=== PATIENT | male | born 1955 | race Caucasian/White ===

== ENCOUNTER 2018-06-04 07:12 | Observation (INO) ==
--- NOTE | 2018-06-04 07:34 | Emergency Department Note ---
Disposition Clinical Impression: Ureterolithiasis, Intractable pain, Kidney stone on right side Disposition: Admitted As Inpatient Condition: Fair Referrals: NONE,PCP [Non-Partnered Physician] - Forms: ED Satisfaction Letter, Work/School Release Time of Disposition: 10:14 Abdominal Pain HPI - General Chief Complaint: ED Abdominal Pain Stated Complaint: rt flank pain hx of kidney stones Time Seen by Provider: 06/04/18 07:15 Source: patient, family Mode of arrival: ambulatory Limitations: no limitations Nursing Notes Reviewed: Yes Vital Signs Reviewed: Yes - History of Present Illness HPI Narrative: Alert and oriented nontoxic-appearing 62-year-old male presents with complaint of right flank pain. Patient reports pain woke him from sleep at 1 AM medicines been persistent. He reports pain radiates into right sided suprapubic area and right lower quadrant abdomen. He states history of kidney stones with similar symptoms although pain is worse with this episode. He reports one episode of nausea that is since resolved. Patient denies frequency, urgency, dysuria, or hematuria, or vomiting. Pt Subjective Complaint: flank pain Onset (ago): hour(s) Consistency: constant Location: R flank Pain Severity: moderate Pain Scale: 7 Quality: aching, sharp Radiation: RLQ, suprapubic Improves with: nothing Worsens with: movement Context: history of similar episodes Associated symptoms: Reports: nausea. Denies: vomiting, fever, chills, dysuria, hematuria Treatments prior to arrival: NSAIDs - Related Data Home Medications Medication Instructions Recorded Confirmed Aspirin [Adult Low Dose Aspirin EC] 81 mg PO DAILY 11/01/15 11/01/15 Lisinopril [Zestril] 40 mg PO DAILY 11/01/15 11/01/15 hydroCHLOROthiazide 25 mg PO DAILY 11/01/15 11/01/15 [Hydrochlorothiazide] Previous Rx's Medication Instructions Recorded Clindamycin [Cleocin] 150 mg PO Q6HR #8 capsule 10/31/15 OxyCODONE Immed Rel [Roxicodone 5 5 mg PO Q8HR PRN #20 tablet 10/31/15 MG] Allergies Allergy/AdvReac Type Severity Reaction Status Date / Time etodolac [From Lodine] AdvReac Mild increased Verified 06/04/18 07:20 heart rate All systems ED: reviewed and negative except as stated. Review of Systems: As Per HPI Constitutional: Denies: fever, chills, weakness, weight change, night sweats Eyes: Denies: eye pain, eye discharge, vision change ENT ED: Denies: ear pain, throat pain, dental pain, hearing loss, epistaxis, congestion, dysphagia Cardiovascular: Denies: chest pain, palpitations, dyspnea on exertion, edema, syncope Respiratory: Denies: cough, dyspnea, wheezes, hemoptysis, stridor Gastrointestinal: Reports: as per HPI, abdominal pain (Right flank pain into right lower quadrant), nausea (One episode that is since resolved). Denies: vomiting, diarrhea, constipation, hematemesis, melena, hematochezia Genitourinary: Denies: urgency, dysuria, frequency, hematuria, discharge Musculoskeletal: Denies: back pain, neck pain, arthralgia, myalgia Integumentary: Denies: rash, abrasion, lesions Neurological: Denies: headache, weakness, numbness, paresthesias, confusion, abnormal gait, vertigo Psychiatric: Denies: anxiety, depression, suicidal thoughts, homicidal thoughts, auditory hallucinations, visual hallucinations Endocrine: Denies: fatigue Hematological/Lymphatic: Denies: easy bleeding, easy bruising Allergic/Immunologic: Denies: facial swelling, urticaria Abdominal Pain PMH - Past Medical History Medical history: Reports: hypertension, other Psychiatric history: Reports: no psych history - Social History Smoking status: Never smoker Alcohol use: Reports: none Drug use: Reports: none Physical Exam - General Limitations: no limitations General appearance: alert, in no apparent distress - Head Head exam: atraumatic, normocephalic, normal inspection - Eye Eye exam: Present: normal appearance, PERRL, EOMI. Absent: nystagmus - ENT ENT exam: mucous membranes moist - Neck Neck exam: Present: normal inspection, full ROM, trachea midline - Chest Chest inspection: Present: normal inspection, symmetric chest wall rise - Abdominal Exam Abdominal exam: Present: soft, Non-Tender, normal bowel sounds. Absent: tenderness, distention, guarding, rebound, rigidity - Extremities Exam Extremities exam: Present: normal inspection, full ROM - Back Exam Back exam: Present: tenderness, CVA tenderness (R). Absent: CVA tenderness (L) - Neurological Exam Neurological exam: Present: alert, oriented X3 - Psychiatric Psychiatric exam: Present: normal affect, normal mood - Skin Skin exam: Present: warm, dry, intact, normal color. Absent: rash Course Vital Signs Temperature 97.7 F 06/04/18 07:18 Pulse Rate 56 06/04/18 07:18 Respiratory Rate 18 06/04/18 07:18 Blood Pressure 179/102 06/04/18 07:18 O2 Sat by Pulse Oximetry 98 06/04/18 07:18 Temperature 97.7 F 06/04/18 07:41 Pulse Rate 71 06/04/18 09:53 Respiratory Rate 18 06/04/18 09:53 Blood Pressure 156/94 06/04/18 09:53 O2 Sat by Pulse Oximetry 99 06/04/18 09:53 Oxygen Delivery Oxygen Delivery Room Air Abdominal Pain - MDM Narrative Medical decision making narrative: Normal white blood cell count. Urinalysis shows trace blood. Minor bump in creatinine however not significantly elevated from previous values when trended. CT does show multiple incidental findings including cholelithiasis versus gallbladder sludge. The patient has no tenderness with the right upper quadrant. Negative Belle sign. I discussed this patient's case, laboratory workup, and radiology results with Dr. Buchanan, ED attending. He agrees with admission to urologist for intractable pain and potential stone retrieval. I have spoken with Dr. Ramachandran, urologist vision specialist. He states that he believes that the radiology read may be inaccurate and that the stone may still be at the ureterovesicular junction, waiting to drop into the urinary bladder. The patient for admission to his service. - Medical Records Medical records reviewed: Yes I reviewed the patient's medical records. - Lab Data Lab results reviewed: Yes I reviewed the patient's lab results. Lab results narrative: Lab Results 06/04/18 06/04/18 06/04/18 Range/Units 07:46 07:46 07:46 WBC 10.0 (4.3-11.1) K/mcL RBC 5.18 (4.19-5.50) M/mcL Hgb 15.9 (12.9-16.9) g/dL Hct 46.0 (37.5-50.1) % MCV 88.8 (83.0-100.0) fL MCH 30.7 (28.0-33.3) pg MCHC 34.6 (31.6-35.5) g/dL RDW 13.0 (11.5-14.5) % Plt Count 167 (140-400) K/mcL MPV 9.7 (9.4-12.4) fL Immature Gran % 0.4 (0-4) % Seg Neutrophils % 85.1 % Lymphocytes % 8.4 % Monocytes % 5.4 % Eosinophils % 0.1 % Basophils % 0.6 % Neutrophils # 8.5 (1.6-8.9) K/mcL Lymphocytes # 0.8 (0.6-4.6) K/mcL Monocytes # 0.5 (0.0-1.3) K/mcL Eosinophils # 0.0 (0.0-0.6) K/mcL Basophils # 0.1 (0.0-0.2) K/mcL Sodium 141 (136-145) mEq/L Potassium 3.8 (3.5-5.1) mEq/L Chloride 106 (98-107) mEq/L Carbon Dioxide 24 (23-29) mEq/L BUN 20 (8-23) mg/dL Creatinine 1.58 H (0.70-1.30) mg/dL Est GFR ( Amer) 54 L (> 60) Est GFR (Non-Af Amer) 45 L (> 60) BUN/Creatinine Ratio 13 (6-26) Glucose 143 H (70-105) mg/dL Calculated Osmolality 297 (280-300) Calcium 9.0 (8.6-10.3) mg/dL Urine Color Yellow (Yellow) Urine Clarity Clear (Clear) Urine pH 5.5 (5.0-8.0) pH Units Ur Specific [place] 1.022 (1.010-1.025) Urine Protein Trace (Neg-Trace) mg/dL Urine Glucose (UA) Normal (Normal) mg/dL Urine Ketones 40 H (Negative) mg/dL Urine Blood Trace H (Negative) Urine Nitrite Negative (Negative) Urine Bilirubin Negative (Negative) Urine Urobilinogen Normal (Normal) mg/dL Ur Leukocyte Esterase Negative (Negative) Urine Microscopic RBC 0-3 (0-3) per hpf Urine Microscopic WBC 0-3 (0-3) per hpf Ur Squamous Epith Cells Few (None-Few) per lpf Urine Bacteria None Seen (None-Few) per hpf Hyaline Casts None Seen (None-Few) per lpf Ur Culture Indicated? NO (NO) Result diagrams: 06/04/18 07:46 06/04/18 07:46 Lab Results 06/04/18 06/04/18 06/04/18 Range/Units 07:46 07:46 07:46 WBC 10.0 (4.3-11.1) K/mcL RBC 5.18 (4.19-5.50) M/mcL Hgb 15.9 (12.9-16.9) g/dL Hct 46.0 (37.5-50.1) % MCV 88.8 (83.0-100.0) fL MCH 30.7 (28.0-33.3) pg MCHC 34.6 (31.6-35.5) g/dL RDW 13.0 (11.5-14.5) % Plt Count 167 (140-400) K/mcL MPV 9.7 (9.4-12.4) fL Immature Gran % 0.4 (0-4) % Seg Neutrophils % 85.1 % Lymphocytes % 8.4 % Monocytes % 5.4 % Eosinophils % 0.1 % Basophils % 0.6 % Neutrophils # 8.5 (1.6-8.9) K/mcL Lymphocytes # 0.8 (0.6-4.6) K/mcL Monocytes # 0.5 (0.0-1.3) K/mcL Eosinophils # 0.0 (0.0-0.6) K/mcL Basophils # 0.1 (0.0-0.2) K/mcL Sodium 141 (136-145) mEq/L Potassium 3.8 (3.5-5.1) mEq/L Chloride 106 (98-107) mEq/L Carbon Dioxide 24 (23-29) mEq/L BUN 20 (8-23) mg/dL Creatinine 1.58 H (0.70-1.30) mg/dL Est GFR ( Amer) 54 L (> 60) Est GFR (Non-Af Amer) 45 L (> 60) BUN/Creatinine Ratio 13 (6-26) Glucose 143 H (70-105) mg/dL Calculated Osmolality 297 (280-300) Calcium 9.0 (8.6-10.3) mg/dL Urine Color Yellow (Yellow) Urine Clarity Clear (Clear) Urine pH 5.5 (5.0-8.0) pH Units Ur Specific [place] 1.022 (1.010-1.025) Urine Protein Trace (Neg-Trace) mg/dL Urine Glucose (UA) Normal (Normal) mg/dL Urine Ketones 40 H (Negative) mg/dL Urine Blood Trace H (Negative) Urine Nitrite Negative (Negative) Urine Bilirubin Negative (Negative) Urine Urobilinogen Normal (Normal) mg/dL Ur Leukocyte Esterase Negative (Negative) Urine Microscopic RBC 0-3 (0-3) per hpf Urine Microscopic WBC 0-3 (0-3) per hpf Ur Squamous Epith Cells Few (None-Few) per lpf Urine Bacteria None Seen (None-Few) per hpf Hyaline Casts None Seen (None-Few) per lpf Ur Culture Indicated? NO (NO) - Radiology Data Radiology results reviewed: Yes I reviewed the patient's radiology results. Abdomen/Pelvis CT 06/04/18 07:42 IMPRESSION: 1. Calculus measuring 4 mm is present within right aspect of urinary bladder with right perinephric edema and minimal right hydronephrosis and right hydroureter. 2. Diverticulosis without evidence of acute diverticulitis. 3. Cholelithiasis versus hyperdense sludge layers within gallbladder. D/ / Sal Hardwick / Sal Hardwick Interpreting Provider: Sal Hardwick
[2018-06-04] MEDS ORDERED: *HR* FentaNYL (PF) 100 MCG/2 ML VIAL IVP ONE (07:43)
[2018-06-04] MEDS ORDERED: Ondansetron 4 MG/2 ML VIAL IVP ONE (07:43)
[2018-06-04] MEDS ORDERED: 0.9 % Sodium Chloride 1,000 ML IVC ONE (07:43)
[2018-06-04 08:07] LABS: Basophils # 0.1 K/mcL (0.0-0.2); Basophils % 0.6 %; Eosinophils % 0.1 %; Hemoglobin 15.9 g/dL (12.9-16.9); Immature Granulocytes % 0.4 % (0-4); Lymphocytes # 0.8 K/mcL (0.6-4.6); Lymphocytes % 8.4 %; Mean Corpuscular HGB Conc 34.6 g/dL (31.6-35.5); Mean Corpuscular Hemoglobin 30.7 pg (28.0-33.3); Mean Corpuscular Volume 88.8 fL (83.0-100.0); Mean Platelet Volume 9.7 fL (9.4-12.4); Monocytes # 0.5 K/mcL (0.0-1.3); Monocytes % 5.4 %; Neutrophils # 8.5 K/mcL (1.6-8.9); Platelet Count 167 K/mcL (140-400); Red Blood Count 5.18 M/mcL (4.19-5.50); Segmented Neutrophils % 85.1 %
[2018-06-04 08:11] LABS: Bilirubin,Urine Negative (Negative); Blood,Urine Trace (Negative); Clarity,Urine Clear (Clear); Color,Urine Yellow (Yellow); Glucose,Urine (UA) Normal (Normal); Ketones,Urine 40 mg/dL (Negative); Leukocyte Esterase,Urine Negative (Negative); Nitrite,Urine Negative (Negative); PH,Urine 5.5 pH Units (5.0-8.0); Protein,Urine Trace mg/dL (Neg-Trace); Specific Gravity,Urine 1.022 (1.010-1.025); Urobilinogen,Urine Normal (Normal)
[2018-06-04 08:13] LABS: Bacteria,Urine None Seen per hpf (None-Few); Hyaline Casts,Urine None Seen per lpf (None-Few); RBC,Urine 0-3 per hpf (0-3); Squamous Epithelial Cell,Urine Few per lpf (None-Few); WBC,Urine 0-3 per hpf (0-3)
[2018-06-04 08:31] LABS: Potassium 3.8 mEq/L (3.5-5.1)
[2018-06-04] MEDS ORDERED: *HR* HYDROmorphone (PF) 1 MG/ML SYRINGE IVP ONE (08:38)
[2018-06-04] MEDS ORDERED: *HR* OxyCODONE/APAP 5/325 TABLET PO ONE (09:14)
[2018-06-04] MEDS ORDERED: Ketamine *HR* 25 MG in 0.9 % Sodium Chloride 100 ML IVPB ONE (10:06)
--- NOTE | 2018-06-04 10:09 | Emergency Department Note ---
Disposition Clinical Impression: Kidney stone on right side, Renal insufficiency, Intractable pain Disposition: Admitted As Inpatient Referrals: NONE,PCP [Non-Partnered Physician] - Forms: ED Satisfaction Letter, Work/School Release General Adult HPI - General Chief complaint: ED Abdominal Pain Stated complaint: rt flank pain hx of kidney stones Time Seen by Provider: 06/04/18 07:15 Source: patient, family Mode of arrival: ambulatory Limitations: no limitations - History of Present Illness Pain Scale: 9 - Related Data Home Medications Medication Instructions Recorded Confirmed Aspirin [Adult Low Dose Aspirin EC] 81 mg PO DAILY 11/01/15 11/01/15 Lisinopril [Zestril] 40 mg PO DAILY 11/01/15 11/01/15 hydroCHLOROthiazide 25 mg PO DAILY 11/01/15 11/01/15 [Hydrochlorothiazide] Previous Rx's Medication Instructions Recorded Clindamycin [Cleocin] 150 mg PO Q6HR #8 capsule 10/31/15 OxyCODONE Immed Rel [Roxicodone 5 5 mg PO Q8HR PRN #20 tablet 10/31/15 MG] Allergies Allergy/AdvReac Type Severity Reaction Status Date / Time etodolac [From Lodine] AdvReac Mild increased Verified 06/04/18 07:20 heart rate Constitutional: Denies: fever, chills, weakness, weight change, night sweats Eyes: Denies: eye pain, eye discharge, vision change ENT ED: Denies: ear pain, throat pain, dental pain, hearing loss, epistaxis, congestion, dysphagia Cardiovascular: Denies: chest pain, palpitations, dyspnea on exertion, edema, syncope Respiratory: Denies: cough, dyspnea, wheezes, hemoptysis, stridor Gastrointestinal: Reports: as per HPI, abdominal pain (Right flank pain into right lower quadrant), nausea (One episode that is since resolved). Denies: vomiting, diarrhea, constipation, hematemesis, melena, hematochezia Genitourinary: Denies: urgency, dysuria, frequency, hematuria, discharge Musculoskeletal: Denies: back pain, neck pain, arthralgia, myalgia Integumentary: Denies: rash, abrasion, lesions Neurological: Denies: headache, weakness, numbness, paresthesias, confusion, abnormal gait, vertigo Psychiatric: Denies: anxiety, depression, suicidal thoughts, homicidal thoughts, auditory hallucinations, visual hallucinations Endocrine: Denies: fatigue Hematological/Lymphatic: Denies: easy bleeding, easy bruising Allergic/Immunologic: Denies: facial swelling, urticaria Past Medical History - Past Medical History Medical history: Reports: hypertension, other Surgical history: Reports: other Psychiatric history: Reports: no psych history - Social History Smoking Status: Never smoker Smokeless Tobacco Status: No Alcohol use: Reports: none Drug use: Reports: none Physical Exam - General Limitations: no limitations General appearance: alert, in no apparent distress Course Vital Signs Temperature 97.7 F 06/04/18 07:18 Pulse Rate 56 06/04/18 07:18 Respiratory Rate 18 06/04/18 07:18 Blood Pressure 179/102 06/04/18 07:18 O2 Sat by Pulse Oximetry 98 06/04/18 07:18 Temperature 97.7 F 06/04/18 07:41 Pulse Rate 71 06/04/18 09:53 Respiratory Rate 18 06/04/18 09:53 Blood Pressure 156/94 06/04/18 09:53 O2 Sat by Pulse Oximetry 99 06/04/18 09:53 Oxygen Delivery Oxygen Delivery Room Air Medical Decision Making - Lab Data Result diagrams: 06/04/18 07:46 06/04/18 07:46 Lab Results 06/04/18 06/04/18 06/04/18 Range/Units 07:46 07:46 07:46 WBC 10.0 (4.3-11.1) K/mcL RBC 5.18 (4.19-5.50) M/mcL Hgb 15.9 (12.9-16.9) g/dL Hct 46.0 (37.5-50.1) % MCV 88.8 (83.0-100.0) fL MCH 30.7 (28.0-33.3) pg MCHC 34.6 (31.6-35.5) g/dL RDW 13.0 (11.5-14.5) % Plt Count 167 (140-400) K/mcL MPV 9.7 (9.4-12.4) fL Immature Gran % 0.4 (0-4) % Seg Neutrophils % 85.1 % Lymphocytes % 8.4 % Monocytes % 5.4 % Eosinophils % 0.1 % Basophils % 0.6 % Neutrophils # 8.5 (1.6-8.9) K/mcL Lymphocytes # 0.8 (0.6-4.6) K/mcL Monocytes # 0.5 (0.0-1.3) K/mcL Eosinophils # 0.0 (0.0-0.6) K/mcL Basophils # 0.1 (0.0-0.2) K/mcL Sodium 141 (136-145) mEq/L Potassium 3.8 (3.5-5.1) mEq/L Chloride 106 (98-107) mEq/L Carbon Dioxide 24 (23-29) mEq/L BUN 20 (8-23) mg/dL Creatinine 1.58 H (0.70-1.30) mg/dL Est GFR ( Amer) 54 L (> 60) Est GFR (Non-Af Amer) 45 L (> 60) BUN/Creatinine Ratio 13 (6-26) Glucose 143 H (70-105) mg/dL Calculated Osmolality 297 (280-300) Calcium 9.0 (8.6-10.3) mg/dL Urine Color Yellow (Yellow) Urine Clarity Clear (Clear) Urine pH 5.5 (5.0-8.0) pH Units Ur Specific [place] 1.022 (1.010-1.025) Urine Protein Trace (Neg-Trace) mg/dL Urine Glucose (UA) Normal (Normal) mg/dL Urine Ketones 40 H (Negative) mg/dL Urine Blood Trace H (Negative) Urine Nitrite Negative (Negative) Urine Bilirubin Negative (Negative) Urine Urobilinogen Normal (Normal) mg/dL Ur Leukocyte Esterase Negative (Negative) Urine Microscopic RBC 0-3 (0-3) per hpf Urine Microscopic WBC 0-3 (0-3) per hpf Ur Squamous Epith Cells Few (None-Few) per lpf Urine Bacteria None Seen (None-Few) per hpf Hyaline Casts None Seen (None-Few) per lpf Ur Culture Indicated? NO (NO) Attestation Statement - Attestation Attestation: I have personally performed a face to face evaluation on this patient. I have reviewed and agree with the care plan. History and Exam by me shows: Persistent discomfort after 50 of fentanyl 1 of Dilaudid. We will repeat Dilaudid and add sub-dissociative ketamine. Minor bump in his creatinine, more likely prerenal than secondary obstruction, as the patient has unilateral not bilateral obstruction. Patient being admitted for pain control, may require intervention by urology. [facility] has spoken with urology who excepted the patient to their service.
--- NOTE | 2018-06-04 10:48 | Urology - Consult Note ---
<Lisa Stephen N - Last Filed: 06/04/18 10:45> Date of Encounter: 06/04/18 Time of Encounter: 10:45 - Assessment and Plan (1) Ureterolithiasis Current Visit: Yes Status: Acute Assessment and plan: Patient is a 62-year-old male who presents with history of a 4 mm right UVJ stone. Patient is being admitted to the urology service secondary to intractable pain associated with impacted ureteral stone. Patient's creatinine is elevated from baseline. I discussed surgical risks and benefits with the patient and his , and they both verbalized understanding. Patient will remain nothing by mouth. He is prepared undergo a right ureteroscopic stone extraction with or without holmium laser lithotripsy, basket retrieval, and right ureteral stent placement this afternoon. Urology CN:HPI Consult date: 06/04/18 Reason for consult Urology: Hydronephrosis (right 4mm UVJ stone) History of present illness: Patient is a 62-year-old male who presents with a history of a right 4 mm UVJ stone. Patient states right flank pain began at 1 AM this morning and subsequently brought him to the emergency department. Patient states his pain has been accompanied by nausea and vomiting. Patient denies fever, chills, gross hematuria, hesitancy, frequency, urgency. Patient reports pain has been uncontrolled in the emergency department. Patient underwent a CT scan of abdomen and pelvis revealing a 4 mm stone on the right side of the bladder. After reviewing CT images, the stone is felt to be impacted at the right UVJ causing severe pain, hydronephrosis, and elevated creatinine. Patient reports he passed a small renal stone 3-4 years ago by medical expulsion, and he denies a known family history of renal stones. Past Med Surg Social Fam HX - Past Medical History Medical history: hypertension, other Psychiatric history: no psych history - Past Surgical History Surgical History: other Additional surgical history: right knee scope X's 3 - Social History Smoking Status: Never smoker Smokeless Tobacco Status: No Alcohol use: none Drug use: none Medications and Allergies Lisinopril [Zestril] 40 mg PO DAILY 11/01/15 [History] Aspirin [Adult Aspirin] 81 mg PO DAILY 06/04/18 [History] Echinacea 500 mg PO DAILY 06/04/18 [History] Glucosam/Chond/Hyalu/Cf Borate [[employer] Tablet] 1 tab PO DAILY 06/04/18 [History] Allergy/AdvReac Type Severity Reaction Status Date / Time [facility] AdvReac Mild increased Verified 06/04/18 07:20 heart rate Review of Systems - Constitutional no chills, no fatigue, no fever(s) - EENT Nose, mouth and throat: no dizziness, no headache(s) - Cardiovascular no chest pain, no diaphoresis, no dyspnea, no edema - Respiratory no cough, no dyspnea - Gastrointestinal abdominal pain, nausea, vomiting - Genitourinary no difficulty urinating, no dysuria, no hematuria, no urinary frequency, no urinary hesitancy, no urinary incontinence, no urinary urgency - Musculoskeletal no back pain, no muscle weakness - Integumentary no erythema, no rash, no swelling - Neurological no confusion, no sensory deficit - Psychiatric no anxiety, no confusion - Hematologic/Lymphatic no easy bleeding, no easy bruising - Allergic/Immunologic no throat swelling, no wheezing Exam Initial Vital Signs Temp Pulse Resp BP Pulse Ox 97.7 F 56 18 179/102 98 06/04/18 07:18 06/04/18 07:18 06/04/18 07:18 06/04/18 07:18 06/04/18 07:18 - General physical appearance Present: well developed, no distress, moderate pain - Eyes Present: PERRL, normal ocular movement - ENT Present: no hearing loss, no congestion - Neck Present: no masses, trachea midline - Respiratory Present: normal respiratory effort - Cardiovascular Cardiovascular exam IM: RRR - Abdomen Abdomen: Present: soft, tender (right flank and RLQ) - Integumentary Present: no rash, no abnormal pigmentation - Neurologic Present: normal coordination - Musculoskeletal Present: normal gait Urology Results - Labs 06/04/18 07:46 06/04/18 07:46 Abnormal lab results Creatinine 1.58 mg/dL (0.70-1.30) H 06/04/18 07:46 Est GFR ( Amer) 54 (> 60) L 06/04/18 07:46 Est GFR (Non-Af Amer) 45 (> 60) L 06/04/18 07:46 Glucose 143 mg/dL (70-105) H 06/04/18 07:46 Urine Ketones 40 mg/dL (Negative) H 06/04/18 07:46 Urine Blood Trace (Negative) H 06/04/18 07:46 Diabetes panel 06/04/18 Range/Units 07:46 Sodium 141 (136-145) mEq/L Potassium 3.8 (3.5-5.1) mEq/L Chloride 106 (98-107) mEq/L Carbon Dioxide 24 (23-29) mEq/L BUN 20 (8-23) mg/dL Creatinine 1.58 H (0.70-1.30) mg/dL Glucose 143 H (70-105) mg/dL Calcium 9.0 (8.6-10.3) mg/dL Calcium panel 06/04/18 Range/Units 07:46 Calcium 9.0 (8.6-10.3) mg/dL Pituitary panel 06/04/18 Range/Units 07:46 Sodium 141 (136-145) mEq/L Potassium 3.8 (3.5-5.1) mEq/L Chloride 106 (98-107) mEq/L Carbon Dioxide 24 (23-29) mEq/L BUN 20 (8-23) mg/dL Creatinine 1.58 H (0.70-1.30) mg/dL Glucose 143 H (70-105) mg/dL Calcium 9.0 (8.6-10.3) mg/dL Adrenal panel 06/04/18 Range/Units 07:46 Sodium 141 (136-145) mEq/L Potassium 3.8 (3.5-5.1) mEq/L Chloride 106 (98-107) mEq/L Carbon Dioxide 24 (23-29) mEq/L BUN 20 (8-23) mg/dL Creatinine 1.58 H (0.70-1.30) mg/dL Glucose 143 H (70-105) mg/dL Calcium 9.0 (8.6-10.3) mg/dL All other labs normal. - Imaging CT scan - abdomen: report reviewed, image reviewed CT scan - pelvis: report reviewed, image reviewed Consult Discharge Plan - Plan Referrals: Magdalena Mchugh CNP [Primary Care Provider] - <Valerio Ramachandran - Last Filed: 06/04/18 13:41> Date of Encounter: 06/04/18 - Assessment and Plan (1) Kidney stone on right side Current Visit: Yes Status: Acute Assessment and plan: pt seen in conjunction with FRANCIA Stephen. I agree with plan to proceed with stone extraction today. Exam Initial Vital Signs Temp Pulse Resp BP Pulse Ox 97.7 F 56 18 179/102 98 06/04/18 07:18 06/04/18 07:18 06/04/18 07:18 06/04/18 07:18 06/04/18 07:18 Urology Results - Labs 06/04/18 07:46 06/04/18 07:46 Abnormal lab results Creatinine 1.58 mg/dL (0.70-1.30) H 06/04/18 07:46 Est GFR ( Amer) 54 (> 60) L 06/04/18 07:46 Est GFR (Non-Af Amer) 45 (> 60) L 06/04/18 07:46 Glucose 143 mg/dL (70-105) H 06/04/18 07:46 Urine Ketones 40 mg/dL (Negative) H 06/04/18 07:46 Urine Blood Trace (Negative) H 06/04/18 07:46 Diabetes panel 06/04/18 Range/Units 07:46 Sodium 141 (136-145) mEq/L Potassium 3.8 (3.5-5.1) mEq/L Chloride 106 (98-107) mEq/L Carbon Dioxide 24 (23-29) mEq/L BUN 20 (8-23) mg/dL Creatinine 1.58 H (0.70-1.30) mg/dL Glucose 143 H (70-105) mg/dL Calcium 9.0 (8.6-10.3) mg/dL Calcium panel 06/04/18 Range/Units 07:46 Calcium 9.0 (8.6-10.3) mg/dL Pituitary panel 06/04/18 Range/Units 07:46 Sodium 141 (136-145) mEq/L Potassium 3.8 (3.5-5.1) mEq/L Chloride 106 (98-107) mEq/L Carbon Dioxide 24 (23-29) mEq/L BUN 20 (8-23) mg/dL Creatinine 1.58 H (0.70-1.30) mg/dL Glucose 143 H (70-105) mg/dL Calcium 9.0 (8.6-10.3) mg/dL Adrenal panel 06/04/18 Range/Units 07:46 Sodium 141 (136-145) mEq/L Potassium 3.8 (3.5-5.1) mEq/L Chloride 106 (98-107) mEq/L Carbon Dioxide 24 (23-29) mEq/L BUN 20 (8-23) mg/dL Creatinine 1.58 H (0.70-1.30) mg/dL Glucose 143 H (70-105) mg/dL Calcium 9.0 (8.6-10.3) mg/dL All other labs normal.
[2018-06-04] MEDS ORDERED: *HR* Belladonna Alkaloids/Opium 30 MG RECTAL SUPPOSITORY RC PRN (11:06)
[2018-06-04] MEDS ORDERED: Naloxone 0.4 MG/ML INJ IVP PRN (11:06)
[2018-06-04] MEDS ORDERED: OXYCODONE Oral CONC 10 MG/0.5 ML ORAL.SYG SL PRN ×2 (11:06)
[2018-06-04] MEDS ORDERED: Ondansetron 4 MG/2 ML VIAL IVP PRN (11:06)
[2018-06-04] MEDS: 0.9 % Sodium Chloride 1,000 ML IVC SCH ×2 (11:44→23:24)
[2018-06-04] MEDS: *HR* HYDROmorphone (PF) 1 MG/ML SYRINGE IVP PRN ×3 (12:53→15:33)
--- NOTE | 2018-06-04 16:21 | Anesthesia Evaluation PreOp ---
Date of Encounter: 06/04/18 Time of Encounter: 16:19 - Past History Planned Operation: Right Ureteroscopic Stone Extraction with Laser Cardiac History: HTN Pulmonary History: Denies Any Significant HX PERSONNEL ADMINISTRATOR History: Denies Any Significant HX Other Medical History: Denies Any Significant HX Anesthesia History: No Prior Anesthetic Complications, Past Anesthesia Alcohol Use: none Drug use: none Medications and Allergies Lisinopril [Zestril] 40 mg PO DAILY 11/01/15 [History] Aspirin [Adult Aspirin] 81 mg PO DAILY 06/04/18 [History] Echinacea 500 mg PO DAILY 06/04/18 [History] Glucosam/Chond/Hyalu/Cf Borate [Move Free Joint Health Tablet] 1 tab PO DAILY 06/04/18 [History] Allergy/AdvReac Type Severity Reaction Status Date / Time etodolac [From Lodine] AdvReac Mild increased Verified 06/04/18 07:20 heart rate - Meds/Allergy Pre-op Review Medications Reviewed: Yes Allergies Reviewed: Yes Beta Blockers on Current Med List: No Anesthesia Results - Labs 06/04/18 07:46 06/04/18 07:46 Anesthesia Exam O2 Sat Height 1.78 m Height 1.78 m Weight 115.666 kg Weight 115.666 kg O2 Sat by Pulse Oximetry 96 O2 Sat by Pulse Oximetry 97 O2 Sat by Pulse Oximetry 97 O2 Sat by Pulse Oximetry 93 O2 Sat by Pulse Oximetry 100 O2 Sat by Pulse Oximetry 99 O2 Sat by Pulse Oximetry 99 O2 Sat by Pulse Oximetry 97 O2 Sat by Pulse Oximetry 98 O2 Sat by Pulse Oximetry 98 Vital Signs Temp Pulse Resp BP Pulse Ox 97.7 F 56 18 179/102 98 06/04/18 07:18 06/04/18 07:18 06/04/18 07:18 06/04/18 07:18 06/04/18 07:18 NPO (# of Hours): > 8 hrs Pain Scale: 0 Pain Scale Used: Numeric (1 - 10) - HEENT Pupil (Motor): Pupils equal, EOMI Mallampati: IV Teeth: Normal (Recessed chin) Oral Opening: Greater than 3 - PERSONNEL ADMINISTRATOR LOC: Oriented PERSONNEL ADMINISTRATOR Motor: Normal RUE, Normal LUE, Normal RLE, Normal LLE, Normal Face PERSONNEL ADMINISTRATOR Sensory: Normal: RUE, LUE, RLE, LLE, Face - Cardiac Rhythm: Regular Murmur: None JVD: No Carotid Bruit: No - Pulmonary Breath Sounds: bilateral Clear Respiratory Effort: Symmetrical Anesthesia Assess/Plan ASA Score: 2 Level of consciousness: Cooperative Anesthetic Plan: General (LMA) Reason for No Neuroaxial/Regional Block: Medication contraindications Monitoring Plan: Standard Monitors Recovery Plan: PACU
[2018-06-04] MEDS ORDERED: Isovue-300 50 ML VIAL IVP ONE (17:07)
[2018-06-04] MEDS ORDERED: Lidocaine -MPF 2% 2 ML VIAL ONE (17:15)
[2018-06-04] MEDS ORDERED: *HR* Propofol 200 MG/20 ML VIAL IVP ONE (17:15)
[2018-06-04] MEDS ORDERED: *HR* FentaNYL (PF) 100 MCG/2 ML VIAL ONE (17:15)
--- NOTE | 2018-06-04 17:22 | Operative Note ---
Date of procedure: 06/04/18 Pre-op diagnosis: right distal ureteral stone and hydronephrosis Post-op diagnosis: same Procedure: right ureteroscopic stone extraction Anesthesia: GETA Surgeon: Valerio Ramachandran Was there an lead assistant manager present: No Estimated blood loss (cc): 0 Specimen: stone Condition: stable Disposition: PACU Procedure in Detail: PROCEDURE IN DETAIL: Patient was taken back to the operating room, positioned supine on the operating table. Anesthesia was applied without complication. They were moved into dorsal lithotomy. Careful attention was maintained to cushion all pressure points for patient's safety. They were prepped and draped in sterile fashion. Time-out was performed with the proper patient and procedure. A 21-Ugandan rigid cystoscope was inserted into the bladder without difficulty. Systematic examination of bladder revealed no abnormalities. The right ureteral orifice was cannulated using a 5-Ugandan ureteral Catheter and a zip wire was placed through the 5-Ugandan and confirmed in the renal pelvis with fluoroscopy. The right ureteral orifice was quite edematous and there was darker urine returned with debris. Did not appear purulent. A semirigid ureteroscope was placed and was able to pass this through the ureteral orifice to the level of the stone. The stone was basketed out of the ureter with a 1.9 tipless basket. All stone in the ureter was removed. A 4.8 x 26 ureteral stent was placed over the zip wire under fluoroscopy without complication. The bladder was drained. The stone was sent for stone analysis. The string was left attached to the stent and secured to the patient for easy removal in approximately 72 hours
--- NOTE | 2018-06-04 18:41 | Anesthesia Evaluation Post Op ---
Date of Encounter: 06/04/18 Time of Encounter: 18:40 - Vital Signs Vital Signs: Vital Signs/O2 Sat, Most Current Temp Pulse Resp BP Pulse Ox 99.7 F H 96 16 139/89 97 06/04/18 18:25 06/04/18 18:25 06/04/18 18:25 06/04/18 18:25 06/04/18 18:25 - Lungs Lungs: Clear Ascult./Percussion - Airway Airway: Non-obstructed - Cardiovascular Regular Rate - Mental Status Mental Status: Alert & Oriented, Answers Appropriately - Pain Pain Scale: 0 Pain Scale used: Numeric (1 - 10) - Nausea Vomiting Nausea Vomiting: Not Present - Hydration Hydration: Ice chips, Has not voided - Discharge PostOp Status: Transfer Patient to floor
[2018-06-05] MEDS: 0.9 % Sodium Chloride 1,000 ML IVC SCH (05:43)
[2018-06-05 06:40] VITALS: BP 145/88
[2018-06-05] MEDS ORDERED: Naloxone 0.4 MG/ML INJ IVP PRN (07:11)
[2018-06-05] MEDS ORDERED: *HR* FentaNYL (PF) 100 MCG/2 ML VIAL IVP PRN (07:11)
[2018-06-05] MEDS ORDERED: OXYCODONE Oral CONC 10 MG/0.5 ML ORAL.SYG SL PRN ×2 (07:11)
[2018-06-05] MEDS ORDERED: Acetaminophen IV 1,000 MG/100 ML INFUS..BTL IVPB PRN (07:11)
[2018-06-05] MEDS ORDERED: 0.9 % Sodium Chloride 1,000 ML IVC SCH (07:11)
[2018-06-05] MEDS ORDERED: Ondansetron 4 MG/2 ML VIAL IVP PRN (07:11)
[2018-06-05] MEDS ORDERED: *HR* Belladonna Alkaloids/Opium 30 MG RECTAL SUPPOSITORY RC PRN (07:11)
[2018-06-05] MEDS ORDERED: cefTRIAXone 1,000 MG in Water for inj. (sterile) 20 ML 10 ML IVP SCH (07:11)
[2018-06-05 08:12] LABS: Calcium 8.5 mg/dL (8.6-10.3); Potassium 4.1 mEq/L (3.5-5.1)
--- NOTE | 2018-06-05 08:12 | Discharge Summary ---
Orders not resulted at time of discharge: Pending orders 06/04/18 18:12 Surgical Pathology [PTH] Routine 06/05/18 07:29 BMP [Basic Metabolic Panel] Stat Date of Encounter: 06/05/18 Time of Encounter: 08:12 - Discharge Diagnosis (1) Ureterolithiasis Priority: Primary Status: Acute (2) Intractable pain Priority: Primary Status: Acute (3) Renal insufficiency Priority: Primary Status: Acute - Hospital Course Hospital course: Mr. Ferro is a 62 year old male who presents with a history of distal right ureteral stone and hydronephrosis. On 06/04/2018, patient was taken to the operating room where he underwent right ureteroscopic stone extraction. There were no surgical complications, and the patient tolerated the procedure well. Postoperative course was relatively unremarkable, and he was dismissed in satisfactory condition. Postoperative expectations, restrictions, activity and follow-up were discussed with patient, and patient verbalized understanding. Time spent discussing smoking cessation with patient: 3 to 10 minutes - Time Spent with Patient Total time spent providing and/or coordinating discharge services: Less than 30 minutes Procedures and tests throughout hospitalization: right ureteroscopic stone extraction Labs on day of discharge: Labs from last 24 hours 06/04/18 06/04/18 06/04/18 07:46 07:46 07:46 WBC 10.0 RBC 5.18 Hgb 15.9 Hct 46.0 MCV 88.8 MCH 30.7 MCHC 34.6 RDW 13.0 Plt Count 167 MPV 9.7 Immature Gran % 0.4 Seg Neutrophils % 85.1 Lymphocytes % 8.4 Monocytes % 5.4 Eosinophils % 0.1 Basophils % 0.6 Neutrophils # 8.5 Lymphocytes # 0.8 Monocytes # 0.5 Eosinophils # 0.0 Basophils # 0.1 Sodium 141 Potassium 3.8 Chloride 106 Carbon Dioxide 24 BUN 20 Creatinine 1.58 H Est GFR ( Amer) 54 L Est GFR (Non-Af Amer) 45 L BUN/Creatinine Ratio 13 Glucose 143 H Calculated Osmolality 297 Calcium 9.0 Urine Color Yellow Urine Clarity Clear Urine pH 5.5 Ur Specific Cory 1.022 Urine Protein Trace Urine Glucose (UA) Normal Urine Ketones 40 H Urine Blood Trace H Urine Nitrite Negative Urine Bilirubin Negative Urine Urobilinogen Normal Ur Leukocyte Esterase Negative Urine Microscopic RBC 0-3 Urine Microscopic WBC 0-3 Ur Squamous Epith Cells Few Urine Bacteria None Seen Hyaline Casts None Seen Ur Culture Indicated? NO - Impressions ITS Impressions Abdomen/Pelvis CT 06/04/18 07:42 IMPRESSION: 1. Calculus measuring 4 mm is present within right aspect of urinary bladder with right perinephric edema and minimal right hydronephrosis and right hydroureter. 2. Diverticulosis without evidence of acute diverticulitis. 3. Cholelithiasis versus hyperdense sludge layers within gallbladder. D/ / Sal Hardwick / Sal Hardwick Interpreting Provider: Sal Hardwick Fluoroscopy 06/04/18 17:25 IMPRESSION: Imaging performed for the purpose of placement of a right ureteral stent. Please see performing physician notes for full detail. D/ / 06/04/2018 19:25:19 Cirilo Doan MD / rosy Interpreting Provider: Cirilo Doan MD X-Ray 06/04/18 17:25 IMPRESSION: Imaging performed for the purpose of placement of a right ureteral stent. Please see performing physician notes for full detail. D/ / 06/04/2018 19:25:19 Cirilo Doan MD / rosy Interpreting Provider: Cirilo Doan MD - Discharge Medications Prescriptions: HYDROcodone/Acet 5/325 mg [[place] 5-325 mg] 1 tab PO Q6H PRN 5 Days #20 tab PRN Reason: Moderate Pain Home Medications: Lisinopril [Zestril] 40 mg PO DAILY 11/01/15 [History] Aspirin [Adult Aspirin] 81 mg PO DAILY 06/04/18 [History] Echinacea 500 mg PO DAILY 06/04/18 [History] Glucosam/Chond/Hyalu/Cf Borate [Move Free Joint Health Tablet] 1 tab PO DAILY 06/04/18 [History] HYDROcodone/Acet 5/325 mg [[place] 5-325 mg] 1 tab PO Q6H PRN 5 Days #20 tab 06/05/18 [Rx] Allergies/Adverse Reactions: Allergy/AdvReac Type Severity Reaction Status Date / Time etodolac [From Lodine] AdvReac Mild increased Verified 06/04/18 07:20 heart rate Date of admission: 06/04/18 10:42 Primary care physician: Magdalena Mchugh CNP Discharging clinician: Lisa Stephen Anticipated date of discharge: 06/05/18 Exam Initial Vital Signs Temp Pulse Resp BP Pulse Ox 97.7 F 56 18 179/102 98 06/04/18 07:18 06/04/18 07:18 06/04/18 07:18 06/04/18 07:18 06/04/18 07:18 - General physical appearance Present: well developed, no distress, no pain - Eyes Present: PERRL, normal ocular movement - ENT Present: normal nares, no hearing loss, no congestion - Neck Present: no masses, trachea midline - Respiratory Present: normal respiratory effort - Cardiovascular Cardiovascular exam IM: RRR - Abdomen Abdomen: Present: soft, non tender - Integumentary Present: no rash, no abnormal pigmentation - Neurologic Present: normal coordination - Musculoskeletal Present: other (normal posture ) - Patient Status Disposition: Home, Self-Care Condition: Good Overall status at discharge: patient is progressing back to baseline - Discharge Instructions Follow Up With: Magdalena Mchugh CNP [Primary Care Provider] - Valerio Ramachandran MD [Partnered Physician] - Additional Instructions: Call if fever greater than 101 degrees. May expect blood in the urine. May experience irritating voiding symptoms such as burning, urgency, frequency, hesitancy. May use AZO over the counter. May use Colace stool softener over the counter. Ok to shower. Ok to drive as long as you are no longer taking narcotic pain medication. Ok to return to normal activity as tolerated. If stent string is visible, may self remove stent in 3-5 days postoperatively. - Diet and Activity Activity: increase activity as tolerated Diet: advance to your usual diet
[2018-06-05] MEDS ORDERED: Lisinopril 20 MG TABLET PO SCH (09:00)
[2018-06-10 18:43] LABS: Calculi Mass 34 mg
== END 2018-06-05 09:26 | disposition home or self-care (01) ==
LOC: EMEROOARM 07:12 → 3BNU 07:12
PROVIDERS: ADMIT Urology; ATTEND Urology